=== PATIENT | female | born 1985 | race American Indian/Alaskan Native ===

== ENCOUNTER 2017-04-15 09:39 | Emergency (ER) | payer MEDICAID ==
[2017-04-15] MEDS ORDERED: ASPIRIN PO ONE (09:49)
[2017-04-15 09:51] VITALS: BP 138/88
[2017-04-15 10:39] LABS: Basophils # (Auto) 0.1 K/mm3 (0.0-0.1); Basophils % (Auto) 1.3 % (0.0-1.8); Eosinophils # (Auto) 0.5 K/mm3 (0.0-0.4); Eosinophils % (Auto) 5.1 % (0.0-4.3); Hematocrit 37.1 % (30.3-42.9); Hemoglobin 12.1 gm/dl (10.1-14.3); Lymphocytes % (Auto) 37.3 % (13.4-35.0); Mean Corpuscular HGB Conc 33 % (30-34); Mean Corpuscular Volume 75 fl (79-97); Monocytes # (Auto) 1.3 K/mm3 (0.0-0.8); Monocytes % (Auto) 12.1 % (0.0-7.3); Platelet Count 354 K/mm3 (140-440); Red Blood Count 4.98 M/mm3 (3.65-5.03); Red Cell Distribution Width 16.8 % (13.2-15.2)
[2017-04-15 10:40] LABS: Mean Corpuscular Hemoglobin 24 pg (28-32)
[2017-04-15 10:46] LABS: BUN/Creatinine Ratio 18; Blood Urea Nitrogen 14 mg/dL (7-17); Calcium 8.8 mg/dL (8.4-10.2); Hemolysis Index 11
[2017-04-15] MEDS ORDERED: NACL 0.9% 1000 ML 1,000 ML IV ONE (11:46)
--- NOTE | 2017-04-15 11:50 | Emergency Department Report ---
HPI - General Chief Complaint: Chest Pain Time Seen by Provider: 04/15/17 11:41 - HPI HPI: Room 19 The patient is a 31-year-old female presenting with chief complaint of chest pain. The patient states for one week she has had pain in the left chest described as a sharp pressure/burning/searing pain. Patient admits to occasional pleurisy. Patient denies cough, fever or rhinorrhea. Patient states she gets short of breath with the pain. Patient missed and nausea but denies vomiting. Patient denies any recent flights or long car trips. The patient currently gets her pain a score of 8/10 Location: Left chest Duration: 1 Week Quality: [See above] Severity: Sharp/pressure/burning/searing Modifying factors: [see above] Context: [see above] Mode of transportation: The patient drove herself to the emergency department and there are no visitors present ED Past Medical Hx - Past Medical History Previous Medical History?: Yes Hx Headaches / Migraines: Yes - Surgical History Past Surgical History?: No Additional Surgical History: x 2 - Family History Family history: no significant - Social History Smoking Status: Former Smoker (none 7 years) Substance Use Type: Marijuana - Medications Home Medications: Home Medications Medication Instructions Recorded Confirmed Last Taken Type Acetaminophen/Codeine [Tylenol #3] 1 tab PO Q6H PRN #20 tab 02/21/15 Unknown Rx Ibuprofen [Motrin 800 MG tab] 800 mg PO Q8HR PRN #30 tablet 02/21/15 Unknown Rx Famotidine [Pepcid] 20 mg PO BID #20 tablet 04/15/17 Unknown Rx HYDROcodone/APAP 5-325 [Kimper 1 each PO Q6HR PRN #10 tablet 04/15/17 Unknown Rx 5/325] ED Review of Systems ROS: Stated complaint: LEFT SIDE CHEST PAIN/JE Other details as noted in HPI Constitutional: denies: fever Respiratory: shortness of breath, other (pleurisy). denies: cough Gastrointestinal: nausea. denies: vomiting Musculoskeletal: myalgia Physical Exam - Physical Exam Vital Signs: Vital Signs 04/15/17 09:50 Temperature 98.6 F Pulse Rate 131 H Respiratory 16 Rate Blood Pressure 138/88 [Left] O2 Sat by Pulse 100 Oximetry Physical Exam: GENERAL: The patient is well-developed well-nourished female lying on stretcher not appearing to be in acute distress. [] HEENT: Normocephalic. Atraumatic. Extraocular motions are intact. Patient has moist mucous membranes. NECK: Supple. Trachea midline CHEST/LUNGS: Clear to auscultation. There is no respiratory distress noted. HEART/CARDIOVASCULAR: Regular. There is tachycardia. There is no gallop rub or murmur. ABDOMEN: Abdomen is soft, nontender. Patient has normal bowel sounds. There is no abdominal distention. SKIN: There is no rash. There is no diaphoresis. NEURO: The patient is awake, alert, and oriented. The patient is cooperative. The patient has normal speech MUSCULOSKELETAL: There is no evidence of acute injury. ED Course Vital Signs 04/15/17 09:50 Temperature 98.6 F Pulse Rate 131 H Respiratory 16 Rate Blood Pressure 138/88 [Left] O2 Sat by Pulse 100 Oximetry ED Medical Decision Making - Lab Data Result diagrams: 04/15/17 10:08 04/15/17 10:08 Laboratory Tests 04/15/17 04/15/17 04/15/17 10:08 10:08 10:08 WBC 10.7 RBC 4.98 Hgb 12.1 Hct 37.1 MCV 75 L MCH 24 L MCHC 33 RDW 16.8 H Plt Count 354 Lymph % (Auto) 37.3 H Blair % (Auto) 12.1 H Eos % (Auto) 5.1 H Baso % (Auto) 1.3 Lymph # 4.0 Blair # 1.3 H Eos # 0.5 H Baso # 0.1 Seg Neutrophils % 44.2 Seg Neutrophils # 4.7 Sodium 139 Potassium 3.9 Chloride 103.1 Carbon Dioxide 19 L Anion Gap 21 BUN 14 Creatinine 0.8 Estimated GFR > 60 BUN/Creatinine Ratio 18 Glucose 95 Calcium 8.8 Troponin T < 0.010 TSH 2.230 Free T4 0.99 Urine HCG, Qual 04/15/17 04/15/17 12:13 12:40 WBC RBC Hgb Hct MCV MCH MCHC RDW Plt Count Lymph % (Auto) Blair % (Auto) Eos % (Auto) Baso % (Auto) Lymph # Blair # Eos # Baso # Seg Neutrophils % Seg Neutrophils # Sodium Potassium Chloride Carbon Dioxide Anion Gap BUN Creatinine Estimated GFR BUN/Creatinine Ratio Glucose Calcium Troponin T < 0.010 TSH Free T4 Urine HCG, Qual Negative - EKG Data -: EKG Interpreted by Me EKG shows normal: sinus rhythm Rate: tachycardia (125 bpm) - EKG Data When compared to previous EKG there are: previous EKG unavailable Interpretation: other (S1, Q3, T3) 04/15/17 13:44 EKG #2 time 13:24 reveals normal sinus rhythm at 81 bpm. No ischemic changes seen - Radiology Data Radiology results: report reviewed (CT chest), image reviewed (CT chest) CTA CHEST INDICATION: Chest pain, pleurisy, shortness of breath. COMPARISON: None similar. FINDINGS: Chest CTA performed following intravenous administration of 100 cc of Omnipaque 350. Rotational MIP's also obtained. Normal heart size. No effusions. No aortic aneurysm, dissection or suspicious pulmonary arterial filling defects. No size significant adenopathy. Normal small thymic tissue. Patent airway. Unremarkable thyroid. Clear lungs. Slight motion artifact. Mild nonspecific distal esophageal wall prominence/thickening, not excluded for gastroesophageal reflux and/or hiatal hernia, amongst others. Images through included upper abdomen reveal no significant abnormality. Unremarkable bones. CONCLUSION: No CT evidence of pulmonary embolism with mild distal esophageal prominence/thickening. Please correlate. Thank you for the opportunity to participate in this patient's care. Transcribed By: RS Dictated By: EYAL CONNELLY MD Electronically Authenticated By: EYAL CONNELLY MD Signed Date/Time: 04/15/17 1304 DD/ 1300 TD/TT: 04/15/17 1304 - Differential Diagnosis PE, ACS, pleurisy, pericarditis, GERD Critical care attestation.: If time is entered above; I have spent that time in minutes in the direct care of this critically ill patient, excluding procedure time. ED Disposition Clinical Impression: Chest pain Disposition: DC-01 TO HOME OR SELFCARE Is pt being admited?: No Does the pt Need Aspirin: No Condition: Stable Instructions: Chest Pain (ED) Additional Instructions: Return to the emergency department immediately should you develop worsening symptoms, fever, inability to tolerate food or liquid or any other concerns. 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 Please follow up with him for further evaluation) Time of Disposition: 13:43
[2017-04-15] MEDS ORDERED: ASPIRIN ONE (11:58)
[2017-04-15 13:04] LABS: HCG Qualitative,Urine Negative (Negative)
--- NOTE | 2017-04-15 13:08 | Cat Scan Report ---
CTA CHEST INDICATION: Chest pain, pleurisy, shortness of breath. COMPARISON: None similar. FINDINGS: Chest CTA performed following intravenous administration of 100 cc of Omnipaque 350. Rotational MIP's also obtained. Normal heart size. No effusions. No aortic aneurysm, dissection or suspicious pulmonary arterial filling defects. No size significant adenopathy. Normal small thymic tissue. Patent airway. Unremarkable thyroid. Clear lungs. Slight motion artifact. Mild nonspecific distal esophageal wall prominence/thickening, not excluded for gastroesophageal reflux and/or hiatal hernia, amongst others. Images through included upper abdomen reveal no significant abnormality. Unremarkable bones. CONCLUSION: No CT evidence of pulmonary embolism with mild distal esophageal prominence/thickening. Please correlate. Thank you for the opportunity to participate in this patient's care.
[2017-04-15 13:28] LABS: Free T4 (Free Thyroxine) 0.99 ng/dL (0.76-1.46)
== END 2017-04-15 14:00 | disposition home or self-care (01) ==
LOC: ED 09:39
DX: R09.1 Pleurisy (principal); R06.02 Shortness of breath; M79.1 Myalgia; G43.909 Migraine, unspecified, not intractable, without status migrainosus; F12.10 Cannabis abuse, uncomplicated; Z87.891 Personal history of nicotine dependence
CPT/HCPCS: 36415; 71275; 80048; 81025; 84439; 84443; 84484; 85025; 93005; 93010; 96360; 99284; J7030; Q9967

== ENCOUNTER 2017-09-20 23:29 | Emergency (ER) | payer MEDICAID ==
[2017-09-20 23:44] VITALS: BP 121/83
[2017-09-21 00:17] LABS: Basophils # (Auto) 0.1 K/mm3 (0.0-0.1); Basophils % (Auto) 1.3 % (0.0-1.8); Eosinophils # (Auto) 0.3 K/mm3 (0.0-0.4); Eosinophils % (Auto) 3.4 % (0.0-4.3); Hematocrit 34.5 % (30.3-42.9); Hemoglobin 11.5 gm/dl (10.1-14.3); Lymphocytes # (Auto) 3.4 K/mm3 (1.2-5.4); Lymphocytes % (Auto) 45.3 % (13.4-35.0); Mean Corpuscular HGB Conc 33 % (30-34); Mean Corpuscular Volume 72 fl (79-97); Monocytes # (Auto) 0.8 K/mm3 (0.0-0.8); Monocytes % (Auto) 10.7 % (0.0-7.3); Platelet Count 335 K/mm3 (140-440); Red Blood Count 4.82 M/mm3 (3.65-5.03); Red Cell Distribution Width 16.9 % (13.2-15.2)
[2017-09-21 00:25] LABS: Mean Corpuscular Hemoglobin 24 pg (28-32)
[2017-09-21 01:14] LABS: Alanine Aminotransferase 14 units/L (7-56); Albumin 4.3 g/dL (3.9-5); BUN/Creatinine Ratio 12; Blood Urea Nitrogen 11 mg/dL (7-17); Calcium 9.2 mg/dL (8.4-10.2); Hemolysis Index 4
== END 2017-09-21 10:20 | disposition left against medical advice (07) ==
LOC: ED 23:29
DX: R11.0 Nausea (principal); Z53.21 Procedure and treatment not carried out due to patient leaving prior to being seen by health care provider
CPT/HCPCS: 36415; 80053; 84703; 85025; 99283

== ENCOUNTER 2017-09-22 00:01 | Emergency (ER) | payer MEDICAID ==
--- NOTE | 2017-09-22 02:40 | Cat Scan Report ---
FINAL REPORT PROCEDURE: CT HEAD/BRAIN WO CON TECHNIQUE: Computerized tomography of the head was performed without contrast material. HISTORY: Trauma s/t syncopal episode, [place]. COMPARISON: No prior studies are available for comparison. FINDINGS: Skull and scalp: Normal. Paranasal sinuses: Normal. Ventricles and subarachnoid spaces: Normal. Cerebrum: No evidence of hemorrhage, acute infarction or mass . Cerebellum and brainstem: No evidence of hemorrhage, acute infarction or mass. Vasculature: Normal. Comments: None. IMPRESSION: Normal Examination
[2017-09-22 06:14] VITALS: BP 114/76
== END 2017-09-22 07:20 | disposition left against medical advice (07) ==
LOC: ED 00:01
DX: R51 Headache (principal); Z53.21 Procedure and treatment not carried out due to patient leaving prior to being seen by health care provider
CPT/HCPCS: 70450; 93005; 93010